=== PATIENT | female | born 1995 | race African-American/Black ===

== ENCOUNTER 2022-06-27 14:34 | Emergency (ER) | payer BC ==
[~2022-06-27] VITALS: Ht 162.5 cm; Wt 97.5 kg
[~2022-06-27 14:34] MED LIST: ALBUTEROL0.09 MG/A2; AUGMENTIN 875 M1 TAB PO; BACTRIM DS 8001 TA1 PO; BIRTH CONTROL1 EAC1 PO; CIPRO500 MG PO; CLARITIN-D 10 M1 T21 PO; CLARITIN-D 12HR1 T11 PO; CLARITIN10 MG PO; CLINDAMYCIN HC300 MG PO; FLOVENT0.044 MG/A; IBU-6600 MG PO; KEFLEX500 MG PO; MEDROL DOSEPAK4 MG PO; MOTRIN400 MG PO; MOTRIN800 MG PO; NAPROSYN500 MG PO; NORCO 325 MG-51 TAB PO; PEN-VK500 MG PO; PREDNICOT10 MG PO; PYRIDIUM200 MG PO; ZITHROMAX Z PA250 MG PO; ZITHROMAX250 MG PO; ZYRTEC10 M1 PO
[2022-06-27 14:50] VITALS: BP 134/78
[2022-06-27] MEDS ORDERED: KENALOG 0.1%80 GM T (16:05)
[2022-06-27] MEDS ORDERED: CEPHALEXIN500 M1 PO (16:05)
== END 2022-06-27 16:15 | disposition home or self-care (01) ==
LOC: ED 14:34
DX: R21 Rash and other nonspecific skin eruption (principal); Z98.890 Other specified postprocedural states

== ENCOUNTER 2024-04-09 07:34 | Emergency (ER) | payer BC ==
[~2024-04-09] VITALS: Ht 162.5 cm; Wt 73.5 kg
[~2024-04-09 07:34] MED LIST changes: +CEPHALEXIN500 M1 PO; +KENALOG 0.1%80 GM T
[2024-04-09 07:46] VITALS: BP 144/116
[2024-04-09] MEDS ORDERED: MEDROL DOSEPAK4 MG PO (07:47)
[2024-04-09] MEDS ORDERED: BENZONATATE100 M1 PO (07:47)
[2024-04-09] MEDS ORDERED: AVPAK AZITHROM250 MG PO (07:47)
[2024-04-09] MEDS ORDERED: VENT7GM INH (07:50)
== END 2024-04-09 07:54 | disposition home or self-care (01) ==
LOC: ED 07:34
DX: J40 Bronchitis, not specified as acute or chronic (principal); Z79.2 Long term (current) use of antibiotics; Z79.899 Other long term (current) drug therapy; Z96.22 Myringotomy tube(s) status

== ENCOUNTER 2024-10-16 15:29 | Emergency (ER) | payer SELFPAY ==
[~2024-10-16] VITALS: Ht 165.1 cm; Wt 72.6 kg
[~2024-10-16 15:29] MED LIST changes: +AVPAK AZITHROM250 MG PO; +BENZONATATE100 M1 PO; +VENT7GM INH
[2024-10-16 15:41] VITALS: BP 132/81
[2024-10-16] MEDS ORDERED: NAPROSYN500 MG PO (16:55)
[2024-10-16] MEDS ORDERED: Ketorolac Tromethamine 60 MG/2 ML VIAL IM ONE (17:05)
== END 2024-10-16 17:05 | disposition home or self-care (01) ==
LOC: ED 15:29
DX: B34.9 Viral infection, unspecified (principal); Z20.822 Contact with and (suspected) exposure to COVID-19; Z79.899 Other long term (current) drug therapy; Z98.890 Other specified postprocedural states